=== PATIENT | female | born 2000 | race African-American/Black ===

== ENCOUNTER 2023-10-23 15:58 | Emergency (ER) | payer OTHER ==
[~2023-10-23] VITALS: Ht 170.2 cm; Wt 99.0 kg
[2023-10-23 16:14] VITALS: O2SAT 100
[2023-10-23] MEDS: ACETAMINOPHEN 325MG TABLET PO ONE (16:49)
[2023-10-23 17:16] LABS: CLARITY URINE CLOUDY (CLEAR); COLOR URINE YELLOW (YELLOW); GLUCOSE URINE NEGATIVE (NEGATIVE); KETONES URINE 4+ (NEGATIVE); LEUKOCYTE ESTERASE URINE NEGATIVE (NEGATIVE); NITRITE URINE NEGATIVE (NEGATIVE); OCCULT BLOOD URINE NEGATIVE (NEGATIVE); PH URINE 6.5 (4.5-8.0); PROTEIN URINE NEGATIVE (NEGATIVE); SPECIFIC GRAVITY URINE 1.023 (1.005-1.030)
[2023-10-23 17:49] LABS: BACTERIA URINE 2+; RBC URINE 0-2 /hpf (0-2); SQUAMOUS EPITHELIAL CELL URINE 2+ /lpf (RARE/1+); WBC URINE 0-2 /hpf (0-2)
[2023-10-23 17:50] VITALS: BP 133/82; PULSE 118; RESP 22; TEMP 98.4
== END 2023-10-23 18:03 | disposition short-term general hospital (02) ==
LOC: ER 15:58
DX: O26.893 Other specified pregnancy related conditions, third trimester (principal); Z3A.33 33 weeks gestation of pregnancy
CPT/HCPCS: 81003; 99291